=== PATIENT | female | born 1970 | race Caucasian/White ===

== ENCOUNTER 2022-10-23 00:56 | Emergency (ER) | payer SELFPAY ==
[~2022-10-23] VITALS: Ht 167.6 cm; Wt 100.2 kg
[2022-10-23] MEDS ORDERED: SODIUM CHLORIDE 0.9% 1000ML 1,000 ML IV ONE ×2 (01:45)
[2022-10-23 02:02] LABS: BASOPHILS % 0.4 % (0.0-1.0); EOSINOPHILS # (AUTO) 0.2 (0.0-0.4); EOSINOPHILS % 2.1 % (0.0-6.0); LYMPHOCYTES # (AUTO) 2.7 (1.0-3.2); LYMPHOCYTES % 37.4 % (18.0-39.1); MEAN CORPUSCULAR HEMOGLOBIN 27.9 pg (28-32); MEAN CORPUSCULAR HGB CONC 31.3 g/dL (31-35); MEAN CORPUSCULAR VOLUME 89.2 fL (81-99); MONOCYTES # (AUTO) 0.4 (0.2-0.8); MONOCYTES % 5.7 % (4.4-11.3); NEUTROPHILS # (AUTO) 3.9 (2.1-6.9); NEUTROPHILS % 54.1 % (38.7-80.0); PLATELET COUNT 287 x10e3/uL (140-360); RED BLOOD COUNT 5.38 x10e6/uL (3.6-5.1); RED CELL DISTRIBUTION WIDTH 12.8 % (11.7-14.4)
[2022-10-23] MEDS ORDERED: BENZONATATE 100 MG CAP PO STA (02:14)
[2022-10-23 02:19] LABS: ALBUMIN 3.5 g/dL (3.5-5.0); ANION GAP 16.7 mmol/L (8-16); CALCIUM 9.3 mg/dL (8.4-10.2); CREATININE, SERUM 0.92 mg/dL (0.57-1.11); POTASSIUM 3.7 mmol/L (3.5-5.1)
[2022-10-23] MEDS ORDERED: BENZONATATE 100 MG CAP ONE (02:29)
[2022-10-23] MEDS ORDERED: BENZONATATE100 MG PO (03:29)
[2022-10-23 03:48] VITALS: BP 119/79
[2022-10-26] MEDS ORDERED: ONDANSETRON ODT4 MG PO (22:52)
== END 2022-10-23 03:45 | disposition home or self-care (01) ==
LOC: ER 01:02
DX: R06.02 Shortness of breath (principal); B34.9 Viral infection, unspecified; E11.65 Type 2 diabetes mellitus with hyperglycemia; R09.81 Nasal congestion; F17.210 Nicotine dependence, cigarettes, uncomplicated
CPT/HCPCS: 36415; 80053; 82948; 85025; 99283; J7030

== ENCOUNTER 2024-09-23 14:34 | Emergency (ER) | payer OTHER ==
[~2024-09-23] VITALS: Ht 167.6 cm; Wt 99.8 kg
[~2024-09-23 14:34] MED LIST: BENZONATATE100 MG PO; ONDANSETRON ODT4 MG PO
[2024-09-23 15:12] VITALS: PULSE 80; RESP 17; TEMP 98.5; O2SAT 100
[2024-09-23] MEDS: INSULIN REGULAR, HUMAN 100 UNIT/1 ML SQ ONE (16:51)
== END 2024-09-23 17:22 | disposition home or self-care (01) ==
LOC: ER 15:15
DX: S93.492A Sprain of other ligament of left ankle, initial encounter (principal); W01.0XXA Fall on same level from slipping, tripping and stumbling without subsequent striking against object, initial encounter; Y93.01 Activity, walking, marching and hiking; Y92.89 Other specified places as the place of occurrence of the external cause; E11.65 Type 2 diabetes mellitus with hyperglycemia; Z85.43 Personal history of malignant neoplasm of ovary
CPT/HCPCS: 36415; 73610; 82948; 99283; J1817